=== PATIENT | female | born 1975 | race Caucasian/White ===

== ENCOUNTER 2016-07-29 20:49 | Emergency (ER) | payer MEDICAID, OTHER ==
[~2016-07-29] VITALS: Ht 165.1 cm; Wt 87.5 kg
[~2016-07-29 20:49] MED LIST: DIPH1TAB25 PO; HYDR-762 PO; IBUP-1542 PO
[2016-07-29 20:57] VITALS: Ht 165.1 cm; Wt 87.5 kg
[2016-07-29] MEDS ORDERED: ONDANSETRON 4 MG INJ IV STA (22:17)
[2016-07-29] MEDS ORDERED: SOD CHLORIDE 0.9% 1,000 ML IV STA (22:17)
[2016-07-29] MEDS ORDERED: morphine 4 MG/ML VIAL IV STA (22:17)
--- NOTE | 2016-07-29 22:36 | ERD ---
ER Documentation Chief Complaint Date/Time DATE: 07/29/16 TIME: 22:23 Chief Complaint PT with AP started today and nausea. Had gallstones recently. HPI 41-year-old female presents to emergency department for complaints of right upper quadrant abdominal pain radiating to the back started today. Patient discussed the pain as sharp pain, 6/10 scale, radiates from right upper quadrant of the right upper back area. Patient is complaining of nausea denies any vomiting. Patient denies any fever or chills. Patient had a history of gallbladder stone removal, [place] Patient patient did not take any medications for pain. Patient denies hematuria or dysuria. ROS All systems reviewed and are negative except as per history of present illness. Medications Home Meds Active Scripts Phenazopyridine Hcl* (Pyridium*) 200 Mg Tab, 200 MG PO TID Y for URINARY PAIN, # 6 TAB Prov:CRISTIAN JOSEPH [employer] 07/30/16 Ondansetron (Ondansetron Odt) 4 Mg Tab.rapdis, 4 MG PO Q8 Y for NAUSEA AND/OR VOMITING, #30 TAB Prov:CRISTIAN JOSEPH NP 07/30/16 Hydrocodone/Acetaminophen ([place] 5-325 Tablet) 1 Each Tablet, 1 TAB PO Q6H Y for SEVERE PAIN LEVEL 7-10, #20 TAB Prov:CRISTIAN JOSEPH NP 07/30/16 Ibuprofen* (Motrin*) 600 Mg Tab, 600 MG PO Q6H Y for PAIN AND OR ELEVATED TEMP, #30 TAB Prov:CRISTIAN JOSEPH NP 07/30/16 Ciprofloxacin Hcl* (Ciprofloxacin Hcl*) 500 Mg Tablet, 500 MG PO BID for 7 Days , TAB Prov:CRISTIAN JOSEPH [employer] 07/30/16 Diphenoxylate Hcl-Atropine* (Lomotil*) 1 Tab Tab, 1 TAB PO Q6H Y for DIARRHEA for 5 Days, TAB Prov:CHAPIS VERDE DO 09/17/15 Hydrocodone Bit-Acetaminophen* ([place]*) 10-325 Mg Tablet, 1 TAB PO Q4H Y for PAIN, #20 TAB Prov:CHAPIS VERDE DO 09/17/15 Ibuprofen* (Motrin*) 600 Mg Tab, 600 MG PO Q6, #15 TAB Prov:KRISTA OJEDA MEKHI 03/16/15 Allergies Allergies: Coded Allergies: No Known Allergy (Unverified , 09/17/15) PMhx/Soc Medical and Surgical Hx: pt denies Medical Hx History of Surgery: Yes (appendectomy, cholecystectomy, fibroidectomy) Anesthesia Reaction: No Hx Neurological Disorder: No Hx Respiratory Disorders: No Hx Cardiac Disorders: No Hx Psychiatric Problems: No Hx Miscellaneous Medical Probl: No Hx Alcohol Use: No Hx Substance Use: No Hx Tobacco Use: No Smoking Status: Never smoker FmHx Family History: No coronary disease, No diabetes, No other Physical Exam Vitals Vital Signs Date Time Temp Pulse Resp B/P Pulse Ox O2 Delivery O2 Flow Rate FiO2 07/29/16 20:57 98.7 79 20 139/79 100 Physical Exam GENERAL: The patient is well developed and appropriate for usual state of health, in no apparent distress. CHEST: Clear to auscultation bilaterally. There are no rales, wheezes or rhonchi. HEART: Regular rate and rhythm. No murmurs, clicks, rubs or gallops. No S3 or S4. ABDOMEN: Soft, nontender and nondistended. Good bowel sounds. No rebound or guarding. No gross peritonitis. No gross organomegaly or masses. No Avila sign or McBurney point tenderness. BACK: No midline or flank tenderness. EXTREMITIES: Equal pulses bilaterally. There is no peripheral clubbing, cyanosis or edema. No focal swelling or erythema. Full range of motion. Grossly neurovascularly intact. NEURO: Alert and oriented. Cranial nerves 2-12 intact. Motor strength in all 4 extremities with 5/5 strength. Sensation grossly intact. Normal speech and gait. SKIN: There is no apparent rash or petechia. The skin is warm and dry. HEMATOLOGIC AND LYMPHATIC: There is no evidence of excessive bruising or lymphedema. No gross cervical, axillary, or inguinal lymphadenopathy. Result Diagram: 07/29/16222907/29/162229 Results 24 hrs Laboratory Tests Test 07/29/16 22:30 07/29/16 22:35 Alanine Aminotransferase (ALT/SGPT) 41IU/L Albumin 4.2g/dl Albumin/Globulin Ratio 1.20 Alkaline Phosphatase 138IU/L Anion Gap 16 Aspartate Amino Transf (AST/SGOT) 28IU/L Basophils # 0.010^3/ul Basophils % 0.5% Blood Urea Nitrogen 14mg/dl Calcium Level 10.1mg/dl Carbon Dioxide Level 26mmol/L Chloride Level 104mmol/L Creatinine 0.85mg/dl Direct Bilirubin 0.00mg/dl Eosinophils # 0.110^3/ul Eosinophils % 1.6% Globulin 3.50g/dl Glucose Level 96mg/dl Hematocrit 38.8% Hemoglobin 12.5g/dl Indirect Bilirubin 0.2mg/dl Lipase 73U/L Lymphocytes # 2.610^3/ul Lymphocytes % 40.2% Mean Corpuscular Hemoglobin 27.4pg Mean Corpuscular Hemoglobin Concent 32.2g/dl Mean Corpuscular Volume 85.1fl Mean Platelet Volume 11.3fl Monocytes # 0.310^3/ul Monocytes % 5.2% Neutrophils # 3.410^3/ul Neutrophils % 52.3% Nucleated Red Blood Cells # 0.010^3/ul Nucleated Red Blood Cells % 0.0/100WBC Platelet Count 71674^3/UL Potassium Level 3.9mmol/L Red Blood Count 4.5610^6/ul Red Cell Distribution Width 14.4% Sodium Level 142mmol/L Total Bilirubin 0.2mg/dl Total Protein 7.7g/dl White Blood Count 6.410^3/ul Urine Bacteria MANY Urine Bilirubin NEGATIVE Urine Clarity CLOUDY Urine Color LT. YELLOW Urine Glucose NEGATIVE% Urine Hemoglobin 3+ Urine Ketones NEGATIVE Urine Leukocyte Esterase 1+ Urine Microscopic RBC >200/HPF Urine Microscopic WBC 2-5/HPF Urine Nitrite POSITIVE Urine Specific [place] 1.020 Urine Squamous Epithelial Cells FEW Urine Total Protein TRACE Urine Urobilinogen 0.2 E.U./dL Urine pH 6.0 Current Medications Medications (Trade) Dose Ordered Sig/Clarice Route PRN Reason Start Time Stop Time Status Last Admin Dose Admin Sodium Chloride (NS) 1,000 ml @ 1,000 mls/hr Q1H STAT IV 07/29/16 22:17 07/29/16 23:16 DC 07/29/16 22:39 Morphine Sulfate (morphine) 4 mg ONCE STAT IV 07/29/16 22:17 07/29/16 22:22 DC 07/29/16 22:38 Ondansetron HCl 4 mg 4 mg ONCE STAT IV 07/29/16 22:17 07/29/16 22:22 DC 07/29/16 22:38 Ceftriaxone Sodium (Rocephin) 50 ml @ 100 mls/hr ONCE ONCE IVPB 07/30/16 00:00 07/30/16 00:29 Patient was given medication for pain here in emergency department, after treatment, patient verbalized feeling much better. Patient's pain is improved.Patient was given Zofran here in the emergency department. After treatment, patient was able to tolerate po fluids here in the emergency department without any vomiting. There is no signs and symptoms of dehydration. Normal saline IV bolus was given here in emergency department for rehydration, patient tolerated IV fluids. PROCEDURE: Ultrasound of the abdomen. CLINICAL INDICATION: Right upper quadrant pain. TECHNIQUE: Sonographic images of the abdomen were performed. COMPARISON: No pertinent prior examinations were submitted for comparison. FINDINGS: Liver: The liver is diffusely increased in echogenicity and enlarged, measuring approximately 19 cm. The hepatic veins and portal veins are patent with appropriate directional flow. No intrahepatic ductal dilatation is seen. Gallbladder: Prior cholecystectomy is noted. The common duct measures 3.3 mm. Pancreas: Obscured by bowel gas. Kidneys: The right kidney measures 12.1 cm. There is normal corticomedullary differentiation. There is no evidence of renal calculus or hydronephrosis. IVC: The visualized portion of the inferior vena cava is unremarkable. Aorta: Normal in size. Free fluid: None. IMPRESSION: Hepatic steatosis and hepatomegaly. RPTAT: HIKT .Fareed Wise MD, MD Date Time Electronically viewed and signed by .Fareed Wise MD, on 07/29/2016 23:52 .T/ CC: CRISTIAN JOSEPH [employer] Procedures/MDM Medical Decision Making: Patient symptoms is likely consistent with pyelonephritis considering patient has flank pain, nitrates and leukocytes in the urine. There is low suspicion for abdominal emergencies at this time. Patients abdominal exam is normal at this time. Patients radiology exam does not show any abdominal emergencies at this time. There is low suspicion for appendicitis, cholecystitis, abdominal aortic aneurysms or peritonitis at this time. There is low suspicion for sepsis. Patient appears well and is hemodynamically stable. Disposition: Home. Condition: Stable Prescription ciprofloxacin, ibuprofen, [place], Zofran, pyridium Instructions: Patient is advised to take medications as prescribed. Patient is advised to rest, increase fluid intake and do perineal hygiene. Patient is advised that if symptoms are worse, severe abdominal pain, uncontrolled vomiting , high fever, severe flank pain, worst signs and symptoms, to return to the emergency department immediately. Otherwise, patient can follow up with primary care doctor in 5-7 days. Departure Diagnosis: Primary Impression: Pyelonephritis Condition: Stable Patient Instructions: Pyelonephritis, Female (Adult) Additional Instructions: Patient is advised to take medications as prescribed. Patient is advised to rest , increase fluid intake and do perineal hygiene. Patient is advised that if symptoms are worse, severe abdominal pain, uncontrolled vomiting, high fever, severe flank pain, worst signs and symptoms, to return to the emergency department immediately. Otherwise, patient can follow up with primary care doctor in 5-7 days. CRISTIAN JOSEPH NP Jul 29, 2016 22:34
[2016-07-29 22:47] LABS: ADD SCAN DIFF NO
[2016-07-29 22:49] LABS: BASOPHILS % 0.5 % (0.0-2.0); EOSINOPHILS # 0.1 10^3/ul (0.0-0.5); EOSINOPHILS % 1.6 % (0.0-7.0); HEMATOCRIT 38.8 % (37.0-47.0); HEMOGLOBIN 12.5 g/dl (12.0-16.0); LYMPHOCYTES # 2.6 10^3/ul (0.8-2.9); LYMPHOCYTES % 40.2 % (15.0-51.0); MEAN CORPUSCULAR HEMOGLOBIN 27.4 pg (29.0-33.0); MEAN CORPUSCULAR HGB CONC 32.2 g/dl (32.0-37.0); MEAN CORPUSCULAR VOLUME 85.1 fl (82.0-101.0); MEAN PLATELET VOLUME 11.3 fl (7.4-10.4); MONOCYTE # 0.3 10^3/ul (0.3-0.9); MONOCYTES % 5.2 % (0.0-11.0); NEUTROPHIL # 3.4 10^3/ul (1.6-7.5); NEUTROPHILS % 52.3 % (39.0-77.0); PLATELET COUNT 299 10^3/UL (140-415); RED BLOOD COUNT 4.56 10^6/ul (4.20-5.40); RED CELL DISTRIBUTION WIDTH 14.4 % (11.5-14.5); WHITE BLOOD COUNT 6.4 10^3/ul (4.8-10.8)
[2016-07-29 23:05] LABS: ALBUMIN 4.2 g/dl (3.3-4.9)
[2016-07-29 23:06] LABS: POTASSIUM 3.9 mmol/L (3.5-5.1)
[2016-07-29 23:08] LABS: ALBUMIN/GLOBULIN RATIO 1.2; BILIRUBIN,INDIRECT 0.2 mg/dl (0-1.1); BILIRUBIN,TOTAL 0.2 mg/dl (0.2-1.3); CREATININE 0.85 mg/dl (0.44-1.00); TOTAL PROTEIN 7.7 g/dl (6.1-8.1)
[2016-07-29 23:09] LABS: CALCIUM 10.1 mg/dl (8.4-10.2)
[2016-07-29 23:16] LABS: ADD UMIC YES; URINE BILIRUBIN (Dip) NEGATIVE (NEGATIVE); URINE BLOOD (Dip) 3+ (NEGATIVE); URINE COLOR LT. YELLOW (YELLOW); URINE GLUCOSE (Dip) NEGATIVE (NEGATIVE); URINE KETONES (Dip) NEGATIVE (NEGATIVE); URINE LEUKOCYTE ESTERASE (Dip) 1+ (NEGATIVE); URINE NITRITE (Dip) POSITIVE (NEGATIVE); URINE TOTAL PROTEIN (Dip) TRACE (NEGATIVE); URINE UROBILINOGEN (Dip) 0.2 E.U./dL (0.1-1.0)
[2016-07-29 23:28] LABS: BACTERIA,URINE MANY; SQUAMOUS EPITHELIAL CELL,UR FEW; URINE RBCS >200 /HPF (0)
--- NOTE | 2016-07-29 23:52 | RADRPT ---
PROCEDURE: Ultrasound of the abdomen. CLINICAL INDICATION: Right upper quadrant pain. TECHNIQUE: Sonographic images of the abdomen were performed. COMPARISON: No pertinent prior examinations were submitted for comparison. FINDINGS: Liver: The liver is diffusely increased in echogenicity and enlarged, measuring approximately 19 cm . The hepatic veins and portal veins are patent with appropriate directional flow. No intrahepatic d uctal dilatation is seen. Gallbladder: Prior cholecystectomy is noted. The common duct measures 3.3 mm. Pancreas: Obscured by bowel gas. Kidneys: The right kidney measures 12.1 cm. There is normal corticomedullary differentiation. Ther e is no evidence of renal calculus or hydronephrosis. IVC: The visualized portion of the inferior vena cava is unremarkable. Aorta: Normal in size. Free fluid: None. IMPRESSION: Hepatic steatosis and hepatomegaly. RPTAT: HIKT .Fareed Wise MD, Date Time Electronically viewed and signed by .Fareed Wise MD, on 07/29/2016 23:52 .T/
[2016-07-30] MEDS ORDERED: CEFTRIAXONE 1 GM/50 ML (PMX) 50 ML IVPB ONE
[2016-07-30] MEDS ORDERED: ONDA4TAB14 PO (00:02)
[2016-07-30] MEDS ORDERED: PHEN-538 PO (00:02)
[2016-07-30] MEDS ORDERED: IBUP-1542 PO (00:02)
[2016-07-30] MEDS ORDERED: CIPR500T4 PO (00:02)
[2016-07-30] MEDS ORDERED: HYDR-906 PO (00:02)
[2016-07-30 00:42] VITALS: BP 113/74; PULSE 53; RESP 18; TEMP 97.6
== END 2016-07-30 00:42 | disposition home or self-care (01) ==
LOC: FTE 20:49
DX: N12 Tubulo-interstitial nephritis, not specified as acute or chronic (principal); R11.0 Nausea
CPT/HCPCS: 36415; 76705; 80053; 81001; 83690; 85025; 96374; 96375; J0696; J2270; J2405; J7030; Z7502; 81003

== ENCOUNTER 2016-11-18 19:17 | Emergency (ER) | payer MEDICAID, OTHER ==
[~2016-11-18] VITALS: Ht 162.6 cm; Wt 88.1 kg
[~2016-11-18 19:17] MED LIST changes: +CIPR500T4 PO; +HYDR-906 PO; +ONDA4TAB14 PO; +PHEN-538 PO
[2016-11-18 19:47] VITALS: Ht 162.6 cm; Wt 88.1 kg
[2016-11-18 20:52] LABS: ADD SCAN DIFF NO
--- NOTE | 2016-11-18 20:53 | ERD ---
ER Documentation Chief Complaint Date/Time DATE: 11/18/16 TIME: 20:51 Chief Complaint abd pain since this am, 3 weeks preg. -n/v/d. denies vag bleed HPI Patient is a 41-year-old female who is who presents to the ED with mild pelvic pain 1 day. Patient states that her last normal menstrual period was 02/2017 she states that she is approximately 4 weeks through IVF. She is currently on estradiol and progesterone. She states that her OB doctor is a doctor in [place]. She denies fever or chills. Denies abdominal pain, nausea, vomiting or diarrhea. Denies back pain. Denies headache or dizziness. Denies leg pain or leg swelling. Denies recent travel or recent surgeries. Denies chest pain or cough or shortness of breath. ROS All systems reviewed and are negative except as per history of present illness. Medications Home Meds Active Scripts Nitrofurantoin Monohyd Macrocr* (Macrobid*) 100 Mg Capsr, 100 MG PO BID for 7 Days, CAP Prov:JAZZ MATT PA-C 11/18/16 Phenazopyridine Hcl* (Pyridium*) 200 Mg Tab, 200 MG PO TID Y for URINARY PAIN, # 6 TAB Prov:CRISTIAN JOSEPH NP 07/30/16 Ondansetron (Ondansetron Odt) 4 Mg Tab.rapdis, 4 MG PO Q8 Y for NAUSEA AND/OR VOMITING, #30 TAB Prov:CRISTIAN JOSEPH NP 07/30/16 Hydrocodone/Acetaminophen ([place] 5-325 Tablet) 1 Each Tablet, 1 TAB PO Q6H Y for SEVERE PAIN LEVEL 7-10, #20 TAB Prov:CRISTIAN JOSEPH NP 07/30/16 Ibuprofen* (Motrin*) 600 Mg Tab, 600 MG PO Q6H Y for PAIN AND OR ELEVATED TEMP, #30 TAB Prov:CRISTIAN JOSEPH NP 07/30/16 Ciprofloxacin Hcl* (Ciprofloxacin Hcl*) 500 Mg Tablet, 500 MG PO BID for 7 Days , TAB Prov:CRISTIAN JOSEPH NP 07/30/16 Diphenoxylate Hcl-Atropine* (Lomotil*) 1 Tab Tab, 1 TAB PO Q6H Y for DIARRHEA for 5 Days, TAB Prov:CHAPIS VERDE. DO 09/17/15 Hydrocodone Bit-Acetaminophen* ([place]*) 10-325 Mg Tablet, 1 TAB PO Q4H Y for PAIN, #20 TAB Prov:CHAPIS VERDE. DO 09/17/15 Ibuprofen* (Motrin*) 600 Mg Tab, 600 MG PO Q6, #15 TAB Prov:KRISTA OJEDA NP 03/16/15 Allergies Allergies: Coded Allergies: No Known Allergy (Unverified , 09/17/15) PMhx/Soc Medical and Surgical Hx: pt denies Medical Hx, pt denies Surgical Hx History of Surgery: No Anesthesia Reaction: No Hx Neurological Disorder: No Hx Respiratory Disorders: No Hx Cardiac Disorders: No Hx Psychiatric Problems: No Hx Miscellaneous Medical Probl: No Hx Alcohol Use: No Hx Substance Use: No Hx Tobacco Use: No Smoking Status: Never smoker FmHx Family History: No coronary disease, No diabetes, No other Physical Exam Vitals Vital Signs Date Time Temp Pulse Resp B/P Pulse Ox O2 Delivery O2 Flow Rate FiO2 11/18/16 19:47 98.6 82 18 113/70 99 Physical Exam GENERAL: Well-developed, well-nourished female. Appears in no acute distress. HEAD: Normocephalic, atraumatic. EYES: Pupils are equally reactive bilaterally. EOMs grossly intact. No conjunctival erythema. ENT: Moist mucous membranes. No uvula deviation. No kissing tonsils. No exudates. NECK: Supple. No lymphadenopathy or thyromegaly. No meningismus. negative kernig. negative brudinski. LUNG: Clear to auscultation bilaterally. No rhonchi, wheezing, rales or coarse breath sounds. HEART: Regular rate and rhythm. No murmurs, rubs or gallops. ABDOMEN: No scars, ecchymosis or rashes noted. Soft, nontender, and nondistended. Positive bowel sounds in all four quadrants. No rebound tenderness , no guarding. (-) McBurneys point tenderness. No CVA tenderness. BACK: No midline tenderness. Extremities: Equal pulses bilaterally. No peripheral clubbing, cyanosis or edema. No unilateral leg swelling. NEUROLOGIC: Alert and oriented. Moving all four extremities. 5/5 strength in all extremities. Normal speech. Steady gait. SKIN: Normal color. Warm and dry. No rashes or lesions. Capillary refill < 2 seconds Result Diagram: 11/18/162037 Results 24 hrs Laboratory Tests Test 11/18/16 20:38 White Blood Count 8.510^3/ul Red Blood Count 4.6310^6/ul Hemoglobin 13.5g/dl Hematocrit 39.0% Mean Corpuscular Volume 84.2fl Mean Corpuscular Hemoglobin 29.2pg Mean Corpuscular Hemoglobin Concent 34.6g/dl Red Cell Distribution Width 14.6% Platelet Count 90172^3/UL Mean Platelet Volume 10.7fl Neutrophils % 60.0% Lymphocytes % 33.6% Monocytes % 4.5% Eosinophils % 1.2% Basophils % 0.5% Nucleated Red Blood Cells % 0.0/100WBC Neutrophils # 5.110^3/ul Lymphocytes # 2.910^3/ul Monocytes # 0.410^3/ul Eosinophils # 0.110^3/ul Basophils # 0.010^3/ul Nucleated Red Blood Cells # 0.010^3/ul Urine Color YELLOW Urine Clarity CLEAR Urine pH 5.0 Urine Specific [place] 1.014 Urine Ketones NEGATIVEmg/dL Urine Nitrite NEGATIVEmg/dL Urine Bilirubin NEGATIVEmg/dL Urine Urobilinogen NEGATIVEmg/dL Urine Leukocyte Esterase 2+[place]/ul Urine Microscopic RBC 3/HPF Urine Microscopic WBC 24/HPF Urine Squamous Epithelial Cells FEW/HPF Urine Bacteria MANY/HPF Urine Mucus FEW/HPF Urine Hemoglobin 1+mg/dL Urine Glucose NEGATIVEmg/dL Urine Total Protein NEGATIVEmg/dl Beta HCG, Quantitative 7097.5mIU/ml Procedures/MDM ER COURSE: I kept the patient and/or family informed of laboratory and diagnostic imaging results throughout the emergency room course. EKG, MONITORS, & DIAGNOSTIC IMAGING: [place] [id number] Radiology Main Line: [phone] DIAGNOSTIC IMAGING REPORT Patient: SIMBA ESQUIVEL : 1975 Age: 41 Sex: F MR #: [id number] DOS: 11/18/162022 Ordering MD: JAZZ MATT PA-C Location: [facility] Room/Bed: PROCEDURE: OB Ultrasound. CLINICAL INDICATION: Positive test. Pelvic pain. TECHNIQUE: Ultrasound of the pelvis was performed with transabdominal and transvaginal sonography in the axial and sagittal planes. COMPARISON: No prior study is available for comparison. FINDINGS: There is a single intrauterine gestational sac. pole is not visualized. Yolk sac is present. Mean sac diameter is 0.77 cm. Menstrual age by ultrasound dates is 5 weeks 3 days. This indicates an expected date of delivery of 07/18/2017. The right ovary appears normal measuring 3.2 x 2.3 x 2.0 cm. The left ovary appears normal measuring 2.9 x 1.5 x 1.8 cm. Color Doppler and pulsed Doppler sonography demonstrate normal flow to the ovaries. There is no pelvic mass. There is a moderate amount of free fluid in the cul-de -sac. IMPRESSION: 1. Single intrauterine gestational sac measuring 0.77 cm. pole is not visualized but yolk sac is present. Follow-up ultrasound in 11 days is advised. 2. Moderate free fluid in the cul-de-sac, nonspecific. Follow-up advised. RPTAT: QQ .Tyron Saucedo MD, Date Time Electronically viewed and signed by .Tyron Saucedo MD, on 11/18/2016 21:53 .R/ CC: JAZZ MATT PA-C LAB INTERPRETATION: CBC showed no evidence of systemic infection or severe anemia. UA showed 2+ leukocytes with no nitrites or hematuria C.5 RH: o+ MEDICAL DECISION MAKING: This is a 41-year-old female who presents with who presents to the ED with bilateral pelvic pain 1 day. Vital signs were reviewed. Patient is afebrile. Patient is not hypoxic. Patient is nontoxic or ill-appearing. Ultrasound is read by radiologist shows a single intrauterine gestational sac with a yolk sac but no pole. Beta hCG is within normal limits patient does not require RhoGam at this time. Advised patient to follow-up with her OB and repeat ultrasound and beta hCGs in 2 days. Low suspicion for ovarian torsion, PID, tuboovarian abscess, ectopic , bowel obstruction, pyelonephritis, UTI, appendicitis, cervicitis, septic , molar , HELLP syndrome, preeclampsia, eclampsia, placenta previa, placenta abruptia. Patient also has a UTI. Her urine showed 2+ leukocytes. DISCHARGE: At this time, patient is stable for discharge and outpatient management with no new complaints during the ER course. Patient was sent home with Macrobid and a copy of all imaging and laboratory studies.. Patient will be discharged home with instructions to recheck for new or worsening symptoms such as fever, nausea , weakness, LOC and to follow up with primary care in the next 1-2 days. Patient was advised to return to the ER for any new or worsening symptoms. Plan was discussed and patient and/or family understands and agrees. Home instructions were given. Departure Diagnosis: Primary Impression: UTI (urinary tract infection) Urinary tract infection type: acute cystitis Hematuria presence: without hematuria Qualified Code: N30.00 - Acute cystitis without hematuria Condition: Stable JAZZ MATT PA-C Nov 18, 2016 20:53
[2016-11-18 20:54] LABS: BASOPHILS % 0.5 % (0.0-2.0); EOSINOPHILS # 0.1 10^3/ul (0.0-0.5); EOSINOPHILS % 1.2 % (0.0-7.0); HEMOGLOBIN 13.5 g/dl (12.0-16.0); LYMPHOCYTES # 2.9 10^3/ul (0.8-2.9); LYMPHOCYTES % 33.6 % (15.0-51.0); MEAN CORPUSCULAR HEMOGLOBIN 29.2 pg (29.0-33.0); MEAN CORPUSCULAR HGB CONC 34.6 g/dl (32.0-37.0); MEAN CORPUSCULAR VOLUME 84.2 fl (82.0-101.0); MEAN PLATELET VOLUME 10.7 fl (7.4-10.4); MONOCYTE # 0.4 10^3/ul (0.3-0.9); MONOCYTES % 4.5 % (0.0-11.0); NEUTROPHIL # 5.1 10^3/ul (1.6-7.5); PLATELET COUNT 321 10^3/UL (140-415); RED BLOOD COUNT 4.63 10^6/ul (4.20-5.40); RED CELL DISTRIBUTION WIDTH 14.6 % (11.5-14.5); WHITE BLOOD COUNT 8.5 10^3/ul (4.8-10.8)
[2016-11-18 21:02] LABS: ADD UMIC YES; UR ASCORBIC ACID NEGATIVE (NEGATIVE); UR BACTERIA MANY /HPF (NONE SEEN); UR BILIRUBIN (Dip) NEGATIVE (NEGATIVE); UR BLOOD (Dip) 1+ mg/dL (NEGATIVE); UR CLARITY CLEAR (CLEAR); UR COLOR YELLOW (YELLOW); UR GLUCOSE (Dip) NEGATIVE (NEGATIVE); UR KETONES (Dip) NEGATIVE (NEGATIVE); UR LEUKOCYTE ESTERASE (Dip) 2+ Leu/ul (NEGATIVE); UR MUCUS FEW /HPF (NONE SEEN); UR NITRITE (Dip) NEGATIVE (NEGATIVE); UR RBC 3 /HPF (0-5); UR SPECIFIC GRAVITY (Dip) 1.014 (1.003-1.030); UR SQUAMOUS EPITHELIAL CELL FEW /HPF (FEW); UR TOTAL PROTEIN (Dip) NEGATIVE (NEGATIVE); UR UROBILINOGEN (Dip) NEGATIVE (NEGATIVE)
--- NOTE | 2016-11-18 21:54 | RADRPT ---
PROCEDURE: OB Ultrasound. CLINICAL INDICATION: Positive test. Pelvic pain. TECHNIQUE: Ultrasound of the pelvis was performed with transabdominal and transvaginal sonography in the axial and sagittal planes. COMPARISON: No prior study is available for comparison. FINDINGS: There is a single intrauterine gestational sac. pole is not visualized. Yolk sac is present. Mean sac diameter is 0.77 cm. Menstrual age by ultrasound dates is 5 weeks 3 days. This indicates an expected date of delivery of 07/18/2017. The right ovary appears normal measuring 3.2 x 2.3 x 2.0 cm. The left ovary appears normal measuring 2.9 x 1.5 x 1.8 cm. Color Doppler and pulsed Doppler sonography demonstrate normal flow to the ovaries. There is no pelvic mass. There is a moderate amount of free fluid in the cul-de-sac. IMPRESSION: 1. Single intrauterine gestational sac measuring 0.77 cm. pole is not visualized but yolk sa c is present. Follow-up ultrasound in 11 days is advised. 2. Moderate free fluid in the cul-de-sac, nonspecific. Follow-up advised. RPTAT: QQ .Tyron Saucedo MD, Date Time Electronically viewed and signed by .Tyron Saucedo MD, on 11/18/2016 21:53 .R/
[2016-11-18] MEDS ORDERED: NITR-58 PO (22:05)
== END 2016-11-18 22:14 | disposition home or self-care (01) ==
LOC: FTE 19:17
DX: O23.11 Infections of bladder in pregnancy, first trimester (principal); R10.2 Pelvic and perineal pain; Z3A.01 Less than 8 weeks gestation of pregnancy
CPT/HCPCS: 36415; 76801; 76817; 81001; 84702; 85025; 86900; 86901

== ENCOUNTER 2016-11-23 18:18 | Emergency (ER) | payer MEDICAID ==
[~2016-11-23] VITALS: Wt 88.5 kg
[~2016-11-23 18:18] MED LIST changes: +NITR-58 PO
--- NOTE | 2016-11-23 18:46 | ERD ---
ER Documentation Chief Complaint Date/Time DATE: 11/23/16 TIME: 18:45 Chief Complaint 4 WEEKS PREG MOD AMOUNT OF BRIGHT RED VAG BLEEDING W/ CLOTS STARTED 1HR AGO HPI This is a 41-year-old female presents to the ER with vaginal bleeding that started about an hour ago. Patient states that vaginal bleeding has been severe since this started. She denies any pelvic pain. She denies any urinary frequency or dysuria. Patient denies any vaginal discharge. A0. ROS 12 point review of systems was done, all negative except per HPI. Medications Home Meds Active Scripts Nitrofurantoin Monohyd Macrocr* (Macrobid*) 100 Mg Capsr, 100 MG PO BID for 7 Days, CAP Prov:JAZZ MATT PA-C 11/18/16 Phenazopyridine Hcl* (Pyridium*) 200 Mg Tab, 200 MG PO TID Y for URINARY PAIN, # 6 TAB Prov:CRISTIAN JOSEPH WOOL HANKER 07/30/16 Ondansetron (Ondansetron Odt) 4 Mg Tab.rapdis, 4 MG PO Q8 Y for NAUSEA AND/OR VOMITING, #30 TAB Prov:CRISTIAN JOSEPH WOOL HANKER 07/30/16 Hydrocodone/Acetaminophen ([place] 5-325 Tablet) 1 Each Tablet, 1 TAB PO Q6H Y for SEVERE PAIN LEVEL 7-10, #20 TAB Prov:CRISTIAN JOSEPH WOOL HANKER 07/30/16 Ibuprofen* (Motrin*) 600 Mg Tab, 600 MG PO Q6H Y for PAIN AND OR ELEVATED TEMP, #30 TAB Prov:CRISTIAN JOSEPH WOOL HANKER 07/30/16 Ciprofloxacin Hcl* (Ciprofloxacin Hcl*) 500 Mg Tablet, 500 MG PO BID for 7 Days , TAB Prov:CRSITIAN JOSEPH WOOL HANKER 07/30/16 Diphenoxylate Hcl-Atropine* (Lomotil*) 1 Tab Tab, 1 TAB PO Q6H Y for DIARRHEA for 5 Days, TAB Prov:ERNESTINE VERDESTELVERS A. DO 09/17/15 Hydrocodone Bit-Acetaminophen* ([place]*) 10-325 Mg Tablet, 1 TAB PO Q4H Y for PAIN, #20 TAB Prov:SUNDAYOSAPOSTOLOS A. DO 09/17/15 Ibuprofen* (Motrin*) 600 Mg Tab, 600 MG PO Q6, #15 TAB Prov:KRISTA OJEDALuis GAMING 03/16/15 Allergies Allergies: Coded Allergies: No Known Allergy (Unverified , 09/17/15) PMhx/Soc Medical and Surgical Hx: pt denies Medical Hx, pt denies Surgical Hx History of Surgery: No Anesthesia Reaction: No Hx Neurological Disorder: No Hx Respiratory Disorders: No Hx Cardiac Disorders: No Hx Psychiatric Problems: No Hx Miscellaneous Medical Probl: No Hx Alcohol Use: No Hx Substance Use: No Hx Tobacco Use: No Smoking Status: Never smoker Physical Exam Vitals Vital Signs Date Time Temp Pulse Resp B/P Pulse Ox O2 Delivery O2 Flow Rate FiO2 11/23/16 18:23 99.2 118 18 164/84 98 Physical Exam GENERAL: The patient is well developed and appropriate for usual state of health , in no apparent distress. HEENT: Atraumatic. CHEST: Clear to auscultation bilaterally. There are no rales, wheezes or rhonchi. HEART: Regular rate and rhythm. No murmurs, clicks, rubs or gallops. ABDOMEN: Soft, nontender and nondistended. Good bowel sounds. No rebound or guarding. No gross peritonitis. No gross organomegaly or masses. No Avila sign or McBurney point tenderness. BACK: No midline or flank tenderness. NEURO: Alert and oriented. SKIN:The skin is warm and dry. Result Diagram: 11/23/16 8647 Results 24 hrs Laboratory Tests Test 11/23/16 18:55 11/23/16 19:00 White Blood Count 7.510^3/ul Red Blood Count 4.6510^6/ul Hemoglobin 13.4g/dl Hematocrit 39.8% Mean Corpuscular Volume 85.6fl Mean Corpuscular Hemoglobin 28.8pg Mean Corpuscular Hemoglobin Concent 33.7g/dl Red Cell Distribution Width 14.6% Platelet Count 40531^3/UL Mean Platelet Volume 10.8fl Neutrophils % 63.2% Lymphocytes % 30.9% Monocytes % 4.4% Eosinophils % 0.7% Basophils % 0.4% Nucleated Red Blood Cells % 0.0/100WBC Neutrophils # 4.810^3/ul Lymphocytes # 2.310^3/ul Monocytes # 0.310^3/ul Eosinophils # 0.110^3/ul Basophils # 0.010^3/ul Nucleated Red Blood Cells # 0.010^3/ul Beta HCG, Quantitative 31832.0mIU/ml Urine Color GOOD Urine Clarity CLOUDY Urine pH 6.0 Urine Specific [place] 1.018 Urine Ketones NEGATIVEmg/dL Urine Nitrite NEGATIVEmg/dL Urine Bilirubin NEGATIVEmg/dL Urine Urobilinogen NEGATIVEmg/dL Urine Leukocyte Esterase TRACELeu/ul Urine Microscopic RBC > 182/HPF Urine Microscopic WBC 164/HPF Urine Squamous Epithelial Cells FEW/HPF Urine Mucus FEW/HPF Urine Hemoglobin 3+mg/dL Urine Glucose NEGATIVEmg/dL Urine Total Protein 2+mg/dl Procedures/MDM Differential diagnosis: Threatened , missed , incomplete , ectopic , molar , UTI, pyelonephritis. This is a 41 -year-old female that presents to the ER with vaginal bleeding. At this time her is intrauterine and her quantitative hCG is appropriate. Patient' s blood pressure was elevated to 164/84 however patient is on and the second third trimester of suspicion for preeclampsia is low. She was told to return to ER in 48 hours for recheck as this is still considered a threatened . My medical decision making was shared with the patient she understands and agrees with plan. Departure Diagnosis: Primary Impression: Threatened Condition: JONATAN Peace Nov 23, 2016 18:46
[2016-11-23 19:10] LABS: ADD SCAN DIFF NO
[2016-11-23 19:14] LABS: BASOPHILS % 0.4 % (0.0-2.0); EOSINOPHILS # 0.1 10^3/ul (0.0-0.5); EOSINOPHILS % 0.7 % (0.0-7.0); HEMATOCRIT 39.8 % (37.0-47.0); HEMOGLOBIN 13.4 g/dl (12.0-16.0); LYMPHOCYTES # 2.3 10^3/ul (0.8-2.9); LYMPHOCYTES % 30.9 % (15.0-51.0); MEAN CORPUSCULAR HEMOGLOBIN 28.8 pg (29.0-33.0); MEAN CORPUSCULAR HGB CONC 33.7 g/dl (32.0-37.0); MEAN CORPUSCULAR VOLUME 85.6 fl (82.0-101.0); MEAN PLATELET VOLUME 10.8 fl (7.4-10.4); MONOCYTE # 0.3 10^3/ul (0.3-0.9); MONOCYTES % 4.4 % (0.0-11.0); NEUTROPHIL # 4.8 10^3/ul (1.6-7.5); NEUTROPHILS % 63.2 % (39.0-77.0); PLATELET COUNT 304 10^3/UL (140-415); RED BLOOD COUNT 4.65 10^6/ul (4.20-5.40); RED CELL DISTRIBUTION WIDTH 14.6 % (11.5-14.5); WHITE BLOOD COUNT 7.5 10^3/ul (4.8-10.8)
[2016-11-23 19:27] LABS: ADD UMIC YES; UR ASCORBIC ACID 40 mg/dL (NEGATIVE); UR BILIRUBIN (Dip) NEGATIVE (NEGATIVE); UR BLOOD (Dip) 3+ mg/dL (NEGATIVE); UR CLARITY CLOUDY (CLEAR); UR COLOR AMBER (YELLOW); UR GLUCOSE (Dip) NEGATIVE (NEGATIVE); UR KETONES (Dip) NEGATIVE (NEGATIVE); UR LEUKOCYTE ESTERASE (Dip) TRACE Leu/ul (NEGATIVE); UR MUCUS FEW /HPF (NONE SEEN); UR NITRITE (Dip) NEGATIVE (NEGATIVE); UR RBC > 182 /HPF (0-5); UR SPECIFIC GRAVITY (Dip) 1.018 (1.003-1.030); UR SQUAMOUS EPITHELIAL CELL FEW /HPF (FEW); UR TOTAL PROTEIN (Dip) 2+ mg/dl (NEGATIVE); UR UROBILINOGEN (Dip) NEGATIVE (NEGATIVE)
--- NOTE | 2016-11-23 19:36 | RADRPT ---
PROCEDURE: OB Ultrasound. CLINICAL INDICATION: Positive test. Abnormal vaginal bleeding. TECHNIQUE: Ultrasound of the pelvis was performed with transabdominal and transvaginal sonography in the axial and sagittal planes. COMPARISON: 11/18/2016. FINDINGS: There is a single intrauterine gestational sac. pole and yolk sac are present. There is heart motion. heart rate is 93 beats per minute. [place]-rump length is 0.32 cm. Mean sac diameter is 1.53 cm. Menstrual age by ultrasound dates is 6 weeks 1 day. This indicates an expected date of delivery of 07/18/2017. The right ovary appears normal measuring 2.3 x 1.7 x 2.5 cm. The left ovary appears normal measuring 2.5 x 1.5 x 1.4 cm. Color Doppler and pulsed Doppler sonography demonstrate normal flow to the ovaries. There is no other pelvic mass or free fluid. IMPRESSION: 1. Single live intrauterine gestation of 6 weeks 1 day menstrual age by ultrasound dates. 2. Expected date of delivery is 07/18/2017. RPTAT: QQ .Tyron Saucedo MD, Date Time Electronically viewed and signed by .Tyron Saucedo MD, on 11/23/2016 19:35 .R/
== END 2016-11-23 21:04 | disposition home or self-care (01) ==
LOC: FTE 18:18
DX: O20.0 Threatened abortion (principal); Z3A.01 Less than 8 weeks gestation of pregnancy
CPT/HCPCS: 36415; 76801; 76817; 81001; 84702; 85025; 86900; 86901; Z7502

== ENCOUNTER 2016-11-25 05:08 | Emergency (ER) | payer MEDICAID ==
[~2016-11-25] VITALS: Ht 160 cm; Wt 88.5 kg
[2016-11-25 05:13] VITALS: Ht 160 cm; Wt 88.5 kg
--- NOTE | 2016-11-25 06:55 | ERD ---
ER Documentation Chief Complaint Date/Time DATE: 11/25/16 TIME: 06:52 Chief Complaint Pt reports she is here for a beta quant recheck HPI Is a 41-year-old female who presents to the emergency department today for recheck of her blood work. Patient states she was here 2 days ago for bleeding during . States she has stopped bleeding. States she is here because she was told to come back. Denies any fevers or chills, abdominal pain, dysuria ROS All systems reviewed and are negative except as per history of present illness. Medications Home Meds Active Scripts Nitrofurantoin Monohyd Macrocr* (Macrobid*) 100 Mg Capsr, 100 MG PO BID for 7 Days, CAP Prov:JAZZ MATT PA-C 11/18/16 Phenazopyridine Hcl* (Pyridium*) 200 Mg Tab, 200 MG PO TID Y for URINARY PAIN, # 6 TAB Prov:CRISTIAN JOSEPH DENTAL SCHEDULING COORDINATOR 07/30/16 Ondansetron (Ondansetron Odt) 4 Mg Tab.rapdis, 4 MG PO Q8 Y for NAUSEA AND/OR VOMITING, #30 TAB Prov:CRISTIAN JOSEPH DENTAL SCHEDULING COORDINATOR 07/30/16 Hydrocodone/Acetaminophen ([place] 5-325 Tablet) 1 Each Tablet, 1 TAB PO Q6H Y for SEVERE PAIN LEVEL 7-10, #20 TAB Prov:CRISTIAN JOSEPH DENTAL SCHEDULING COORDINATOR 07/30/16 Ibuprofen* (Motrin*) 600 Mg Tab, 600 MG PO Q6H Y for PAIN AND OR ELEVATED TEMP, #30 TAB Prov:CRISTIAN JOSEPH DENTAL SCHEDULING COORDINATOR 07/30/16 Ciprofloxacin Hcl* (Ciprofloxacin Hcl*) 500 Mg Tablet, 500 MG PO BID for 7 Days , TAB Prov:CRISTIAN JOSEPH DENTAL SCHEDULING COORDINATOR 07/30/16 Diphenoxylate Hcl-Atropine* (Lomotil*) 1 Tab Tab, 1 TAB PO Q6H Y for DIARRHEA for 5 Days, TAB Prov:ERNESTINE VERDESTELVERS A. DO 09/17/15 Hydrocodone Bit-Acetaminophen* ([place]*) 10-325 Mg Tablet, 1 TAB PO Q4H Y for PAIN, #20 TAB Prov:SUNDAYOSAPOSTOLOS A. DO 09/17/15 Ibuprofen* (Motrin*) 600 Mg Tab, 600 MG PO Q6, #15 TAB Prov:KRISTA OJEDA Katelin GAMING 03/16/15 Allergies Allergies: Coded Allergies: No Known Allergy (Unverified , 09/17/15) PMhx/Soc History of Surgery: No Anesthesia Reaction: No Hx Neurological Disorder: No Hx Respiratory Disorders: No Hx Cardiac Disorders: No Hx Psychiatric Problems: No Hx Miscellaneous Medical Probl: No Hx Alcohol Use: No Hx Substance Use: No Hx Tobacco Use: No Smoking Status: Never smoker Physical Exam Vitals Vital Signs Date Time Temp Pulse Resp B/P Pulse Ox O2 Delivery O2 Flow Rate FiO2 11/25/16 05:13 98.3 82 20 122/72 99 Physical Exam Const: No acute distress Head: Atraumatic Eyes: Normal Conjunctiva ENT: Normal External Ears, Nose and Mouth. Neck: Full range of motion..~ No meningismus. Resp: Clear to auscultation bilaterally Cardio: Regular rate and rhythm, no murmurs Abd: Soft, non tender, non distended. Normal bowel sounds Skin: No petechiae or rashes Back: No midline or flank tenderness Ext: No cyanosis, or edema Neur: Awake and alert Psych: Normal Mood and Affect Results 24 hrs Laboratory Tests Test 11/25/16 06:10 Beta HCG, Quantitative 91409.0mIU/ml Procedures/MDM This is a who presents to the emergency department today for recheck of her blood work. Patient had been seen here 2 days ago for vaginal bleeding in early . Patient indicated she has stopped bleeding Patient was seen here in the emergency department 2 days ago and had an IUP of approximately 6 weeks and 1 day. Her hemoglobin at that time was 13.4. Patient indicated she stopped bleeding and I did not feel it was necessary to repeat that today. Patient's beta quant was 22 912 Today patient's beta quant was [address]. Patient's beta quant is increasing appropriately. She had an IUP and she currently has no vaginal bleeding and I do not feel the patient requires further workup at this time. She may follow- up with her SANDBLAST CARVER Patient had vaginal bleeding in early 2 days ago. I have explained her this may be early normal versus early failed however given that her beta quant is increasing and she has an IUP of low suspicion for this. Patient is afebrile and otherwise well-appearing. I have low suspicion for ectopic , tubo ovarian abscess, ovarian torsion. I have explained the results to the patient. At this time the patient is stable for discharge and outpatient management. Patient should follow up with their PCP/manager of digital in the next 1-2 days. They may return to the emergency department sooner for any persistent or worsening of symptoms. Patient understood and agreed with the plan. Departure Diagnosis: Primary Impression: Encounter for laboratory test Additional Impression: Vaginal bleeding in patient at less than 20 weeks gestation Condition: NKECHI Levi PA-C Nov 25, 2016 06:55
== END 2016-11-25 07:52 | disposition home or self-care (01) ==
LOC: FTE 05:08
DX: O20.9 Hemorrhage in early pregnancy, unspecified (principal); Z32.01 Encounter for pregnancy test, result positive; Z3A.01 Less than 8 weeks gestation of pregnancy
CPT/HCPCS: 84702; 99283

== ENCOUNTER 2017-01-06 23:46 | Emergency (ER) | payer MEDICAID ==
[~2017-01-06] VITALS: Ht 157.5 cm; Wt 89.0 kg
[2017-01-07 00:11] VITALS: Ht 157.5 cm; Wt 89.0 kg
[2017-01-07] MEDS ORDERED: SOD CHLORIDE 0.9% 1,000 ML IV ONE (01:00)
--- NOTE | 2017-01-07 01:05 | ERD ---
ER Documentation Chief Complaint Date/Time DATE: 01/07/17 TIME: 01:04 Chief Complaint LOWER PELVIC PAIN, PAINFUL UPON URINATION, 3 MONTHS , ON ANTIBX HPI 41-year-old female presents to emergency department for complaints of pelvic pain, suprapubic,dysuria started 8 days ago. Patient was diagnosed with urinary tract infection by her doctor, was started on Macrobid,states that it has not been helping.patient describes the pain as cramping pain, and dysuria burning pain 4/10 scale, worse upon urination. Patient denies any vaginal bleeding. Patient's approximately 12 weeks . 4 para 3 abortions 0.Patient denies any fever or chills. Patient denies any nausea or vomiting. ROS All systems reviewed and are negative except as per history of present illness. Medications Home Meds Active Scripts Nitrofurantoin Monohyd Macrocr* (Macrobid*) 100 Mg Capsr, 100 MG PO BID for 7 Days, CAP Prov:JAZZ MATT PA-C 11/18/16 Phenazopyridine Hcl* (Pyridium*) 200 Mg Tab, 200 MG PO TID Y for URINARY PAIN, # 6 TAB Prov:CRISTIAN JOSEPH NP 07/30/16 Ondansetron (Ondansetron Odt) 4 Mg Tab.rapdis, 4 MG PO Q8 Y for NAUSEA AND/OR VOMITING, #30 TAB Prov:CRISTIAN JOSEPH NP 07/30/16 Hydrocodone/Acetaminophen ([place] 5-325 Tablet) 1 Each Tablet, 1 TAB PO Q6H Y for SEVERE PAIN LEVEL 7-10, #20 TAB Prov:CRISTIAN JOSEPH NP 07/30/16 Ibuprofen* (Motrin*) 600 Mg Tab, 600 MG PO Q6H Y for PAIN AND OR ELEVATED TEMP, #30 TAB Prov:CRISTIAN JOSEPH NP 07/30/16 Ciprofloxacin Hcl* (Ciprofloxacin Hcl*) 500 Mg Tablet, 500 MG PO BID for 7 Days , TAB Prov:CRISTIAN JOSEPH NP 07/30/16 Diphenoxylate Hcl-Atropine* (Lomotil*) 1 Tab Tab, 1 TAB PO Q6H Y for DIARRHEA for 5 Days, TAB Prov:CHAPIS VERDE DO 09/17/15 Hydrocodone Bit-Acetaminophen* ([place]*) 10-325 Mg Tablet, 1 TAB PO Q4H Y for PAIN, #20 TAB Prov:CHAPIS VERDE DO 09/17/15 Ibuprofen* (Motrin*) 600 Mg Tab, 600 MG PO Q6, #15 TAB Prov:KRISTA OJEDA LINEN SUPPLY LOAD BUILDER 03/16/15 Allergies Allergies: Coded Allergies: No Known Allergy (Unverified , 09/17/15) PMhx/Soc Medical and Surgical Hx: pt denies Medical Hx, pt denies Surgical Hx History of Surgery: No Anesthesia Reaction: No Hx Neurological Disorder: No Hx Respiratory Disorders: No Hx Cardiac Disorders: No Hx Psychiatric Problems: No Hx Miscellaneous Medical Probl: No Hx Alcohol Use: No Hx Substance Use: No Hx Tobacco Use: No Smoking Status: Never smoker FmHx Family History: No coronary disease, No diabetes, No other Physical Exam Vitals Vital Signs Date Time Temp Pulse Resp B/P Pulse Ox O2 Delivery O2 Flow Rate FiO2 01/07/17 00:11 98.6 83 17 128/84 99 Physical Exam GENERAL: The patient is well developed and appropriate for usual state of health, in no apparent distress. CHEST: Clear to auscultation bilaterally. There are no rales, wheezes or rhonchi. HEART: Regular rate and rhythm. No murmurs, clicks, rubs or gallops. No S3 or S4. ABDOMEN: Soft, nontender and nondistended. Good bowel sounds. No rebound or guarding. No gross peritonitis. No gross organomegaly or masses. No Avila sign or McBurney point tenderness. BACK: No midline or flank tenderness. EXTREMITIES: Equal pulses bilaterally. There is no peripheral clubbing, cyanosis or edema. No focal swelling or erythema. Full range of motion. Grossly neurovascularly intact. NEURO: Alert and oriented. Cranial nerves 2-12 intact. Motor strength in all 4 extremities with 5/5 strength. Sensation grossly intact. Normal speech and gait. SKIN: There is no apparent rash or petechia. The skin is warm and dry. HEMATOLOGIC AND LYMPHATIC: There is no evidence of excessive bruising or lymphedema. No gross cervical, axillary, or inguinal lymphadenopathy. Result Diagram: 01/07/17 0100 Results 24 hrs Laboratory Tests Test 01/07/17 01:00 8/29/17 01:12 White Blood Count 8.410^3/ul Red Blood Count 4.5410^6/ul Hemoglobin 12.7g/dl Hematocrit 37.2% Mean Corpuscular Volume 81.9fl Mean Corpuscular Hemoglobin 28.0pg Mean Corpuscular Hemoglobin Concent 34.1g/dl Red Cell Distribution Width 14.0% Platelet Count 15084^3/UL Mean Platelet Volume 11.0fl Neutrophils % 61.1% Lymphocytes % 31.5% Monocytes % 5.5% Eosinophils % 1.0% Basophils % 0.4% Nucleated Red Blood Cells % 0.0/100WBC Neutrophils # (Manual) 5.110^3/ul Lymphocytes # 2.610^3/ul Monocytes # 0.510^3/ul Eosinophils # 0.110^3/ul Basophils # 0.010^3/ul Nucleated Red Blood Cells # 0.010^3/ul Beta HCG, Quantitative 44077.0mIU/ml Urine Color YELLOW Urine Clarity CLEAR Urine pH 5.0 Urine Specific [place] 1.011 Urine Ketones 1+mg/dL Urine Nitrite NEGATIVEmg/dL Urine Bilirubin NEGATIVEmg/dL Urine Urobilinogen NEGATIVEmg/dL Urine Leukocyte Esterase TRACELeu/ul Urine Microscopic RBC 0/HPF Urine Microscopic WBC 4/HPF Urine Squamous Epithelial Cells FEW/HPF Urine Calcium Oxalate Crystals MANY/HPF Urine Bacteria FEW/HPF Urine Hemoglobin NEGATIVEmg/dL Urine Glucose NEGATIVEmg/dL Urine Total Protein NEGATIVEmg/dl Current Medications Medications (Trade) Dose Ordered Sig/Clarice Route PRN Reason Start Time Stop Time Status Last Admin Dose Admin Sodium Chloride 1,000 ml @ 1,000 mls/hr Q1H ONCE IV 01/07/17 01:00 01/07/17 01:59 DC 01/07/17 01:11 Ceftriaxone Sodium (Rocephin) 50 ml @ 100 mls/hr ONCE ONCE IVPB 01/07/17 02:30 01/07/17 02:59 UNV Normal saline IV bolus was given here in emergency department for rehydration, patient tolerated IV fluids. PROCEDURE: ULTRASOUND OBSTETRICAL CLINICAL INDICATION: 41-year-old female with pelvic pain. TECHNIQUE: Multiple sonographic images of the pelvis were obtained. The images were reviewed on a PACS workstation. COMPARISON: Ultrasound pelvis November 23, 2016. FINDINGS: There is a single intrauterine gestation. The mean sac diameter is 5.46 cm. There is a pole present with a crown-rump length of 6.67 cm. This yields an estimated gestational age of 12 weeks and 4 days. The estimated date of delivery is July 18, 2017. Cardiac activity is present at 152 beats per minute. There is no evidence for free fluid. The ovaries are not visualized bilaterally. No adnexal masses are noted. IMPRESSION: 1. Single viable intrauterine gestation of approximately 12 weeks 4 days. The estimated date of delivery is July 18, 2017. 2. The ovaries were not visualized bilaterally. .Mg Benson MD, MD Date Time Electronically viewed and signed by .Mg Benson MD, on 01/07/2017 02:28 .M/ Procedures/MDM Medical Decision Making: patient's symptoms of pelvic pain most likely is consistent with urinary tract infection, there is some is trace of sites in the urine consistent with this. No symptoms of pyelonephritis. Patient's pelvic pain can be from also been growing . Patient is a viable at 12 weeks without any subchorionic hemorrhage.There is low suspicion for abdominal emergencies at this time. Patients abdominal exam is normal at this time. Patients radiology exam does not show any abdominal emergencies at this time. There is low suspicion for appendicitis, cholecystitis, abdominal aortic aneurysms or peritonitis at this time. There is low suspicion for sepsis. Patient appears well and is hemodynamically stable. Disposition: Home. Condition: Stable Prescription tylenol,Keflex Instructions: Patient is advised to take medications as prescribed. Patient is advised to rest, increase fluid intake and do brat diet for next 1-2 days and progress as tolerated. Patient is advised that if symptoms are worse, severe abdominal pain, uncontrolled vomiting, high fever, severe flank pain, worst signs and symptoms, to return to the emergency department immediately. Otherwise, patient can follow up with primary care doctor in 5-7 days. Departure Diagnosis: Primary Impression: Pelvic pain Additional Impressions: UTI (urinary tract infection) Urinary tract infection type: acute cystitis Hematuria presence: without hematuria Qualified Code: N30.00 - Acute cystitis without hematuria Intrauterine Condition: Stable Patient Instructions: Pelvic Pain In : Unclear (2-3 Trimester), Understanding Urinary Tract Infections (UTIs) Additional Instructions: Patient is advised to take medications as prescribed. Patient is advised to rest , increase fluid intake and do brat diet for next 1-2 days and progress as tolerated. Patient is advised that if symptoms are worse, severe abdominal pain , uncontrolled vomiting, high fever, severe flank pain, worst signs and symptoms , to return to the emergency department immediately. Otherwise, patient can follow up with primary care doctor in 5-7 days. CRISTIAN JOSEPH NP Jan 07, 2017 01:05
[2017-01-07 01:25] LABS: BASOPHILS % 0.4 % (0.0-2.0); EOSINOPHILS # 0.1 10^3/ul (0.0-0.5); HEMATOCRIT 37.2 % (37.0-47.0); HEMOGLOBIN 12.7 g/dl (12.0-16.0); LYMPHOCYTES # 2.6 10^3/ul (0.8-2.9); LYMPHOCYTES % 31.5 % (15.0-51.0); MEAN CORPUSCULAR HGB CONC 34.1 g/dl (32.0-37.0); MEAN CORPUSCULAR VOLUME 81.9 fl (82.0-101.0); MONOCYTE # 0.5 10^3/ul (0.3-0.9); MONOCYTES % 5.5 % (0.0-11.0); NEUTROPHILS % 61.1 % (39.0-77.0); PLATELET COUNT 274 10^3/UL (140-415); RED BLOOD COUNT 4.54 10^6/ul (4.20-5.40); WHITE BLOOD COUNT 8.4 10^3/ul (4.8-10.8)
[2017-01-07 01:37] LABS: ADD UMIC YES; UR ASCORBIC ACID NEGATIVE (NEGATIVE); UR BACTERIA FEW /HPF (NONE SEEN); UR BILIRUBIN (Dip) NEGATIVE (NEGATIVE); UR BLOOD (Dip) NEGATIVE (NEGATIVE); UR CLARITY CLEAR (CLEAR); UR COLOR YELLOW (YELLOW); UR GLUCOSE (Dip) NEGATIVE (NEGATIVE); UR KETONES (Dip) 1+ mg/dL (NEGATIVE); UR LEUKOCYTE ESTERASE (Dip) TRACE Leu/ul (NEGATIVE); UR NITRITE (Dip) NEGATIVE (NEGATIVE); UR RBC 0 /HPF (0-5); UR SPECIFIC GRAVITY (Dip) 1.011 (1.003-1.030); UR SQUAMOUS EPITHELIAL CELL FEW /HPF (FEW); UR TOTAL PROTEIN (Dip) NEGATIVE (NEGATIVE); UR UROBILINOGEN (Dip) NEGATIVE (NEGATIVE)
--- NOTE | 2017-01-07 02:28 | RADRPT ---
PROCEDURE: ULTRASOUND OBSTETRICAL CLINICAL INDICATION: 41-year-old female with pelvic pain. TECHNIQUE: Multiple sonographic images of the pelvis were obtained. The images were reviewed on a PACS workstation. COMPARISON: Ultrasound pelvis November 23, 2016. FINDINGS: There is a single intrauterine gestation. The mean sac diameter is 5.46 cm. There is a pole p resent with a crown-rump length of 6.67 cm. This yields an estimated gestational age of 12 weeks and 4 days. The estimated date of delivery is July 18, 2017. Cardiac activity is present at 152 beats per minute. There is no evidence for free fluid. The ovaries are not visualized bilaterally. No adn exal masses are noted. IMPRESSION: 1. Single viable intrauterine gestation of approximately 12 weeks 4 days. The estimated date of de livery is July 18, 2017. 2. The ovaries were not visualized bilaterally. .Mg Benson MD, Date Time Electronically viewed and signed by .Mg Benson MD, on 01/07/2017 02:28 .Ashley/
[2017-01-07] MEDS ORDERED: CEFTRIAXONE 1 GM/50 ML (PMX) 50 ML IVPB ONE (02:30)
[2017-01-07] MEDS ORDERED: CEPH-443 PO (02:35)
[2017-01-07] MEDS ORDERED: ACET500C5 PO (02:35)
[2017-01-07 03:29] VITALS: BP 112/68; PULSE 77; RESP 18; TEMP 98.3
== END 2017-01-07 03:29 | disposition home or self-care (01) ==
LOC: FTE 23:46
DX: O26.891 Other specified pregnancy related conditions, first trimester (principal); R10.2 Pelvic and perineal pain; O23.11 Infections of bladder in pregnancy, first trimester; Z3A.12 12 weeks gestation of pregnancy
CPT/HCPCS: 36415; 76801; 81001; 84702; 85025; 86900; 86901; 96374; J0696; J7030; Z7502

== ENCOUNTER 2017-01-19 11:50 | Emergency (ER) | payer MEDICAID ==
[~2017-01-19] VITALS: Wt 89.5 kg
[~2017-01-19 11:50] MED LIST changes: +ACET500C5 PO; +CEPH-443 PO
[2017-01-19] MEDS ORDERED: ACETAMINOPHEN 325 MG TAB PO STA (12:16)
[2017-01-19] MEDS ORDERED: SOD CHLORIDE 0.9% 1,000 ML IV STA (12:16)
--- NOTE | 2017-01-19 12:44 | RADRPT ---
PROCEDURE: Obstetrical ultrasound CLINICAL INDICATION: right flank pain, pelvic pain TECHNIQUE: Multiple sonographic images of the pelvis were obtained. The images were reviewed on a PACS workstation. COMPARISON: Obstetrical ultrasound from 01/07/1970 FINDINGS: The cervix is not well visualized There is a single viable intrauterine gestation. Cardiac activity is present with 157 beats per minute. There is a vertex presentation. The placenta is anterior. There is no evidence for an abruption or placenta previa. There is a normal amount of amniotic fluid with a maximum vertical pocket of 4.2 cm. Measurements were made in order to determine age. The results are as follows (cm): BPD =2.90 HC =10.94 AC =8.89 FL =1.45 Estimated gestational age by ultrasound of approximately 15 weeks, 0 days. The estimated date of delivery by ultrasound is 07/13/2017. Estimated gestational age by LMP of approximately 13 weeks, 5 days. The estimated date of delivery by LMP is 07/22/2017. EFW = 106 grams (95th percentile) Bilateral ovaries are not visualized. There are no abnormal adnexal masses. IMPRESSION: Single viable intrauterine gestation of approximately 15 weeks, 0 days . The estimated date of delivery is 07/13/2017 . Dating by ultrasound is within 9 days of dating by LMP. Estimated weight is 106 g which is in the 95th percentile. Anterior placenta without evidence of an abruption. Bilateral ovaries are not visualized. There are no abnormal adnexal masses. RPTAT: EE Physician Rafi Date Time Electronically viewed and signed by Physician Rafi on 01/19/2017 12:44 /
[2017-01-19 12:56] LABS: ADD UMIC YES; UR ASCORBIC ACID NEGATIVE (NEGATIVE); UR BACTERIA FEW /HPF (NONE SEEN); UR BILIRUBIN (Dip) NEGATIVE (NEGATIVE); UR BLOOD (Dip) 1+ mg/dL (NEGATIVE); UR CLARITY SLIGHTLY CLOUDY (CLEAR); UR COLOR YELLOW (YELLOW); UR GLUCOSE (Dip) NEGATIVE (NEGATIVE); UR KETONES (Dip) NEGATIVE (NEGATIVE); UR LEUKOCYTE ESTERASE (Dip) TRACE Leu/ul (NEGATIVE); UR MUCUS FEW /HPF (NONE SEEN); UR NITRITE (Dip) NEGATIVE (NEGATIVE); UR RBC 6 /HPF (0-5); UR SQUAMOUS EPITHELIAL CELL FEW /HPF (FEW); UR TOTAL PROTEIN (Dip) NEGATIVE (NEGATIVE); UR UROBILINOGEN (Dip) NEGATIVE (NEGATIVE)
[2017-01-19 13:36] LABS: BASOPHILS % 0.4 % (0.0-2.0); EOSINOPHILS % 0.5 % (0.0-7.0); HEMATOCRIT 36.4 % (37.0-47.0); HEMOGLOBIN 12.3 g/dl (12.0-16.0); LYMPHOCYTES # 1.8 10^3/ul (0.8-2.9); LYMPHOCYTES % 23.9 % (15.0-51.0); MEAN CORPUSCULAR HEMOGLOBIN 28.1 pg (29.0-33.0); MEAN CORPUSCULAR HGB CONC 33.8 g/dl (32.0-37.0); MEAN CORPUSCULAR VOLUME 83.1 fl (82.0-101.0); MONOCYTE # 0.4 10^3/ul (0.3-0.9); MONOCYTES % 5.6 % (0.0-11.0); NEUTROPHILS % 69.3 % (39.0-77.0); PLATELET COUNT 259 10^3/UL (140-415); RED BLOOD COUNT 4.38 10^6/ul (4.20-5.40); RED CELL DISTRIBUTION WIDTH 14.2 % (11.5-14.5); WHITE BLOOD COUNT 7.4 10^3/ul (4.8-10.8)
--- NOTE | 2017-01-19 13:44 | RADRPT ---
PROCEDURE: Renal US. CLINICAL INDICATION: right flank pain TECHNIQUE: Multiple sonographic images of the kidneys were obtained. The images were reviewed on a PACS workstation. COMPARISON: No prior studies are available for comparison. FINDINGS: The kidneys are well visualized. The right kidney measures 14.0 x 6.8 x 6.4 cm.. There is moderate right hydronephrosis. There is an echogenic focus in the inferior pole of the right kidney measuring 10 mm, probable shadowing stone. The left kidney measures and 13.5 x 6.7 x 5.9 cm. There are no focal areas of abnormal echogenicity. No discrete mass is identified in the bladder. However there are multiple echogenic foci within the bladder. IMPRESSION: 1. Moderate right hydronephrosis. 2. Echogenic focus in the inferior pole of the right kidney, probable nonobstructing stone. 3. Multiple echogenic foci present within the bladder, consistent with debris. Findings can be seen in cystitis. RPTAT: HSM .Rocco Pinto MD, MD Date Time Electronically viewed and signed by .Rocco Pinto MD, on 01/19/2017 13:44 .M/
[2017-01-19 13:54] LABS: ALBUMIN 3.7 g/dl (3.3-4.9); ALBUMIN/GLOBULIN RATIO 1.12; BILIRUBIN,INDIRECT 0.1 mg/dl (0-1.1); BILIRUBIN,TOTAL 0.1 mg/dl (0.2-1.3); CALCIUM 10.9 mg/dl (8.4-10.2); CREATININE 0.45 mg/dl (0.44-1.00); POTASSIUM 3.3 mmol/L (3.5-5.1)
[2017-01-19] MEDS ORDERED: CEPH-443 PO (15:36)
[2017-01-19] MEDS ORDERED: ACET500C5 PO (15:36)
[2017-01-19 15:52] VITALS: BP 129/79; PULSE 79; RESP 18
--- NOTE | 2017-01-19 15:54 | ERD ---
ER Documentation Chief Complaint Date/Time DATE: 01/19/17 TIME: 15:50 Chief Complaint pelvic pain 14 weeks HPI 41-year-old female patient who is currently since to the ED complaining of right flank pain that started 2 days ago. Reports that she has had dysuria since January 06, 2017 and was seen here was prescribed Macrobid which has not relieved her symptoms. Denies any vaginal bleeding, vaginal discharge, hematuria, urgency, frequency, abdominal pain, nausea, vomiting, chest pain, shortness of breath. States that her last menstruation was on October 13, 2016. ROS All systems reviewed and are negative except as per history of present illness. Medications Home Meds Active Scripts Cephalexin* (Keflex*) 500 Mg Capsule, 500 MG PO BID for 7 Days, CAP Prov:PANCHO AGUERO PA-C 01/19/17 Acetaminophen* (Tylophen*) 500 Mg Capsule, 1 CAP PO Q6H Y for PAIN AND OR ELEVATED TEMP, #20 CAP Prov:PANCHO AGUERO PA-C 01/19/17 Cephalexin* (Keflex*) 500 Mg Capsule, 500 MG PO QID for 10 Days, CAP Prov:CRISTIAN JOSEPH NP 01/07/17 Acetaminophen* (Tylophen*) 500 Mg Capsule, 1 CAP PO Q6H Y for PAIN AND OR ELEVATED TEMP, #20 CAP Prov:CRISTIAN JOSEPH NP 01/07/17 Nitrofurantoin Monohyd Macrocr* (Macrobid*) 100 Mg Capsr, 100 MG PO BID for 7 Days, CAP Prov:JAZZ MATT PA-C 11/18/16 Phenazopyridine Hcl* (Pyridium*) 200 Mg Tab, 200 MG PO TID Y for URINARY PAIN, # 6 TAB Prov:CRISTIAN JOSEPH NP 07/30/16 Ondansetron (Ondansetron Odt) 4 Mg Tab.rapdis, 4 MG PO Q8 Y for NAUSEA AND/OR VOMITING, #30 TAB Prov:CRISTIAN JOSEPH NP 07/30/16 Hydrocodone/Acetaminophen (Thorn[place] 5-325 Tablet) 1 Each Tablet, 1 TAB PO Q6H Y for SEVERE PAIN LEVEL 7-10, #20 TAB Prov:CRISTIAN JOSEPH NP 07/30/16 Ibuprofen* (Motrin*) 600 Mg Tab, 600 MG PO Q6H Y for PAIN AND OR ELEVATED TEMP, #30 TAB Prov:CRISTIAN JOSEPH ASSOCIATE SCHOOL PSYCHOLOGIST 07/30/16 Ciprofloxacin Hcl* (Ciprofloxacin Hcl*) 500 Mg Tablet, 500 MG PO BID for 7 Days , TAB Prov:CRISTIAN JOSEPH ASSOCIATE SCHO[employer] PSYCHOLOGIST 07/30/16 Diphenoxylate Hcl-Atropine* (Lomotil*) 1 Tab Tab, 1 TAB PO Q6H Y for DIARRHEA for 5 Days, TAB Prov:SUNDAYOSERNESTINESTOLOS A. DO 09/17/15 Hydrocodone Bit-Acetaminophen* (Thornton*) 10-325 Mg Tablet, 1 TAB PO Q4H Y for PAIN, #20 TAB Prov:LEKKOS,APOSTOLOS A. DO 09/17/15 Ibuprofen* (Motrin*) 600 Mg Tab, 600 MG PO Q6, #15 TAB Prov:KRISTA OJEDA ASSOCIATE SCHOOL PSYCHOLOGIST 03/16/15 Allergies Allergies: Coded Allergies: No Known Allergy (Unverified , 09/17/15) PMhx/Soc History of Surgery: No Anesthesia Reaction: No Hx Neurological Disorder: No Hx Respiratory Disorders: No Hx Cardiac Disorders: No Hx Psychiatric Problems: No Hx Miscellaneous Medical Probl: No Hx Alcohol Use: No Hx Substance Use: No Hx Tobacco Use: No Smoking Status: Never smoker Physical Exam Vitals Vital Signs Date Time Temp Pulse Resp B/P Pulse Ox O2 Delivery O2 Flow Rate FiO2 01/19/17 15:52 79 18 129/79 99 Room Air 01/19/17 11:53 98.1 86 18 123/80 99 Physical Exam Const: [id number], well-nourished. In no acute distress. Head: Atraumatic, normocephalic Eyes: Normal Conjunctiva without injection. No purulent discharge. ENT: Normal external ear, nose. Moist oropharynx without tonsillar exudates. Non -erythematous pharynx. Uvula midline. No drooling. No trismus. Neck: No cervical midline tenderness. Full range of motion. No meningismus. No cervical lymphadenopathy. No JVD. Resp: Clear to auscultation bilaterally. No wheezing, rhonchi, rales, or crackles. No accessory muscle use. No retractions. Cardio: Regular rate and rhythm. No murmurs, rubs or gallops. Abd: Soft, nontender, non distended. Normal bowel sounds. No palpable masses. No rebound tenderness. No guarding. Negative McBurney's point. Negative psoas sign. Negative obturator sign. Skin: No petechiae or rashes Back: No midline tenderness. No CVA tenderness. Ext: No cyanosis, or edema. Neur: Awake and alert. Normal gait. Normal coordination. Psych: Normal Mood and Affect Result Diagram: 01/19/17 1325 01/19/17 1325 Results 24 hrs Laboratory Tests Test 01/19/17 12:23 01/19/17 13:25 Urine Color YELLOW Urine Clarity SLIGHTLY CLOUDY Urine pH 6.0 Urine Specific [place] 1.010 Urine Ketones NEGATIVEmg/dL Urine Nitrite NEGATIVEmg/dL Urine Bilirubin NEGATIVEmg/dL Urine Urobilinogen NEGATIVEmg/dL Urine Leukocyte Esterase TRACELeu/ul Urine Microscopic RBC 6/HPF Urine Microscopic WBC 4/HPF Urine Squamous Epithelial Cells FEW/HPF Urine Bacteria FEW/HPF Urine Mucus FEW/HPF Urine Hemoglobin 1+mg/dL Urine Glucose NEGATIVEmg/dL Urine Total Protein NEGATIVEmg/dl White Blood Count 7.410^3/ul Red Blood Count 4.3810^6/ul Hemoglobin 12.3g/dl Hematocrit 36.4% Mean Corpuscular Volume 83.1fl Mean Corpuscular Hemoglobin 28.1pg Mean Corpuscular Hemoglobin Concent 33.8g/dl Red Cell Distribution Width 14.2% Platelet Count 22475^3/UL Mean Platelet Volume 11.0fl Neutrophils % 69.3% Lymphocytes % 23.9% Monocytes % 5.6% Eosinophils % 0.5% Basophils % 0.4% Nucleated Red Blood Cells % 0.0/100WBC Neutrophils # (Manual) 5.210^3/ul Lymphocytes # 1.810^3/ul Monocytes # 0.410^3/ul Eosinophils # 0.010^3/ul Basophils # 0.010^3/ul Nucleated Red Blood Cells # 0.010^3/ul Sodium Level 137mmol/L Potassium Level 3.3mmol/L Chloride Level 109mmol/L Carbon Dioxide Level 21mmol/L Anion Gap 10 Blood Urea Nitrogen 4mg/dl Creatinine 0.45mg/dl Glucose Level 83mg/dl Calcium Level 10.9mg/dl Total Bilirubin 0.1mg/dl Direct Bilirubin 0.00mg/dl Indirect Bilirubin 0.1mg/dl Aspartate Amino Transf (AST/SGOT) 16IU/L Alanine Aminotransferase (ALT/SGPT) 30IU/L Alkaline Phosphatase 90IU/L Total Protein 7.0g/dl Albumin 3.7g/dl Globulin 3.30g/dl Albumin/Globulin Ratio 1.12 Lipase 94U/L Beta HCG, Quantitative 81179.0mIU/ml Current Medications Medications (Trade) Dose Ordered Sig/Clarice Route PRN Reason Start Time Stop Time Status Last Admin Dose Admin Sodium Chloride (NS) 1,000 ml @ 1,000 mls/hr Q1H STAT IV 01/19/17 12:16 01/19/17 13:15 DC 01/19/17 13:36 Acetaminophen (Tylenol Tab) 650 mg ONCE STAT PO 01/19/17 12:16 01/19/17 12:18 DC 01/19/17 13:34 Procedures/MDM 41-year-old female patient with no significant past mental history presents the ED complaining of right flank pain and is currently . Patient is afebrile and nontoxic-appearing. Patient has normal vital signs. An ultrasound , beta-hCG, CBC, type and RH, UA was ordered to evaluate patient. CBC: No evidence of severe infection or anemia Urine: No elevation in nitrites, leukocyte esterase, hematuria. No evidence of UTI Rh: O positive No indication for Rhogam at this time. beta Hc PROCEDURE: Renal US. CLINICAL INDICATION: right flank pain TECHNIQUE: Multiple sonographic images of the kidneys were obtained. The images were reviewed on a PACS workstation. COMPARISON: No prior studies are available for comparison. FINDINGS: The kidneys are well visualized. The right kidney measures 14.0 x 6.8 x 6.4 cm.. There is moderate right hydronephrosis. There is an echogenic focus in the inferior pole of the right kidney measuring 10 mm, probable shadowing stone. The left kidney measures and 13.5 x 6.7 x 5.9 cm. There are no focal areas of abnormal echogenicity. No discrete mass is identified in the bladder. However there are multiple echogenic foci within the bladder. IMPRESSION: 1. Moderate right hydronephrosis. 2. Echogenic focus in the inferior pole of the right kidney, probable nonobstructing stone. 3. Multiple echogenic foci present within the bladder, consistent with debris. Findings can be seen in cystitis. PROCEDURE: Obstetrical ultrasound CLINICAL INDICATION: right flank pain, pelvic pain TECHNIQUE: Multiple sonographic images of the pelvis were obtained. The images were reviewed on a PACS workstation. COMPARISON: Obstetrical ultrasound from 01/07/1970 FINDINGS: The cervix is not well visualized There is a single viable intrauterine gestation. Cardiac activity is present with 157 beats per minute. There is a vertex presentation. The placenta is anterior. There is no evidence for an abruption or placenta previa. There is a normal amount of amniotic fluid with a maximum vertical pocket of 4.2 cm. Measurements were made in order to determine age. The results are as follows (cm): BPD = 2.90 HC = 10.94 AC = 8.89 FL = 1.45 Estimated gestational age by ultrasound of approximately 15 weeks, 0 days. The estimated date of delivery by ultrasound is 07/13/2017. Estimated gestational age by LMP of approximately 13 weeks, 5 days. The estimated date of delivery by LMP is 07/22/2017. EFW = 106 grams (95th percentile) Bilateral ovaries are not visualized. There are no abnormal adnexal masses. IMPRESSION: Single viable intrauterine gestation of approximately 15 weeks, 0 days . The estimated date of delivery is 07/13/2017 . Dating by ultrasound is within 9 days of dating by LMP. Estimated weight is 106 g which is in the 95th percentile. Anterior placenta without evidence of an abruption. Bilateral ovaries are not visualized. There are no abnormal adnexal masses. Patient has a 10 mm renal calculi noted of the right kidney. This case discussed with my supervising physician, Dr. Quezada who stated that patient can be managed on outpatient basis. A urine culture will also be sent. Patient currently has a single viable intrauterine of approximately 15 weeks. Low suspicion for placenta abruptio or previa. Low suspicion for symptomatic anemia, ectopic , sepsis, PID, appendicitis, ovarian torsion, tubo- ovarian abscess, surgical abdomen, septic renal stone, or other emergent conditions. Discharge medications: Tylenol, Keflex Patient to follow up with BRYOLOGIST in 2 days for further evaluation and treatment and a urologist if symptoms do not improve. Patient is to return sooner to the ED for any worsening symptoms. Patient's questions were answered. Patient understood and agreed with discharge plan. Departure Diagnosis: Primary Impression: Right flank pain Condition: Stable Patient Instructions: : Your Second Trimester Changes, Kidney Stone W / Colic Referrals: DESHAWN MADDOX MD (PCP) [facility] YOU HAVE RECEIVED A MEDICAL SCREENING EXAM AND THE RESULTS INDICATE THAT YOU DO NOT HAVE A CONDITION THAT REQUIRES URGENT TREATMENT IN THE EMERGENCY DEPARTMENT. FURTHER EVALUATION AND TREATMENT OF YOUR CONDITION CAN WAIT UNTIL YOU ARE SEEN IN YOUR DOCTORS OFFICE WITHIN THE NEXT 1-2 DAYS. IT IS YOUR RESPONSIBILITY TO MAKE AN APPOINTMENT FOR FOLOW-UP CARE. IF YOU HAVE A PRIMARY DOCTOR --you should call your primary doctor and schedule an appointment IF YOU DO NOT HAVE A PRIMARY DOCTOR YOU CAN CALL OUR PHYSICIAN REFERRAL HOTLINE AT IF YOU CAN NOT AFFORD TO SEE A PHYSICIAN YOU CAN CHOSE FROM THE FOLLOWING [facility] [address] [facility] [address] [facility] [facility] [address] [facility] [address] [facility] [address] [facility] [facility] [address] [facility] [facility] YOU HAVE RECEIVED A MEDICAL SCREENING EXAM AND THE RESULTS INDICATE THAT YOU DO NOT HAVE A CONDITION THAT REQUIRES URGENT TREATMENT IN THE EMERGENCY DEPARTMENT. FURTHER EVALUATION AND TREATMENT OF YOUR CONDITION CAN WAIT UNTIL YOU ARE SEEN IN YOUR DOCTORS OFFICE WITHIN THE NEXT 1-2 DAYS. IT IS YOUR RESPONSIBILITY TO MAKE AN APPOINTMENT FOR FOLOW-UP CARE. IF YOU HAVE A PRIMARY DOCTOR --you should call your primary doctor and schedule and appointment IF YOU DO NOT HAVE A PRIMARY DOCTOR YOU CAN CALL OUR PHYSICIAN REFERRAL HOTLINE AT . IF YOU CAN NOT AFFORD TO SEE A PHYSICIAN YOU CAN CHOSE FROM THE FOLLOWING [facility] INSTITUTIONS: [facility] [address] [place] [address] [facility] [address] [place] [address] [facility] [address] [place] [address] [facility] URGENT CARE/SPECIALTIES BRY[place] [address] [facility] [address] [place] [address] OFFICE FAX , [place] [address] [place] [address] DR. JEAN, [place] [address] [place] [address] DR ALBA, [facility] [address] [place] [address] [address] JENSEN, [facility] [address] [place] [address] [facility] [address] [place] [address] [address] [facility] [id number] - [address] YANES, ESME [address] [place] [address] DR KUMAR, KATHIA [address] [facility]. [address], [place] [address] DR WHEATLEY, [place] [address] [place], [place] [id number] [facility] Hours: 8:00 am - 5:00 pm Additional Instructions: Seguimiento de tu Gineclogo y obtener linda referencia a un urlogo de morris mdico de ludy para morris cuidado ms para morris bhavana en el rin. Avise o llame si morris condicin se empeora antes de la maribel. Regresa aqui si peor o no mejor. PANCHO AGUERO PA-C Jan 19, 2017 15:54
== END 2017-01-19 15:53 | disposition home or self-care (01) ==
LOC: FTE 11:50
DX: O26.892 Other specified pregnancy related conditions, second trimester (principal); R10.2 Pelvic and perineal pain; Z3A.15 15 weeks gestation of pregnancy
CPT/HCPCS: 36415; 76775; 76805; 80053; 81001; 83690; 84702; 85025; 86900; 86901; 87086; J7030; Z7502

== ENCOUNTER 2017-05-06 21:56 | Outpatient (CLI) | payer MEDICAID, OTHER ==
[~2017-05-06] VITALS: Ht 162.6 cm; Wt 100.0 kg
[2017-05-06] MEDS ORDERED: PREN1TAB17 PO (22:41)
[2017-05-06 22:42] VITALS: BP 115/79; PULSE 81; RESP 18; Ht 162.6 cm; Wt 100.0 kg
[2017-05-06] MEDS ORDERED: LACTATED RINGER'S 1,000 ML IV ONE (23:30)
[2017-05-07 00:05] LABS: ADD UMIC YES; UR ASCORBIC ACID NEGATIVE (NEGATIVE); UR BACTERIA FEW /HPF (NONE SEEN); UR BILIRUBIN (Dip) NEGATIVE (NEGATIVE); UR BLOOD (Dip) 2+ mg/dL (NEGATIVE); UR CLARITY CLOUDY (CLEAR); UR COLOR YELLOW (YELLOW); UR GLUCOSE (Dip) NEGATIVE (NEGATIVE); UR KETONES (Dip) NEGATIVE (NEGATIVE); UR LEUKOCYTE ESTERASE (Dip) 3+ Leu/ul (NEGATIVE); UR MUCUS FEW /HPF (NONE SEEN); UR NITRITE (Dip) NEGATIVE (NEGATIVE); UR RBC 67 /HPF (0-5); UR SPECIFIC GRAVITY (Dip) 1.009 (1.003-1.030); UR SQUAMOUS EPITHELIAL CELL FEW /HPF (FEW); UR TOTAL PROTEIN (Dip) 2+ mg/dl (NEGATIVE); UR UROBILINOGEN (Dip) NEGATIVE (NEGATIVE)
[2017-05-07] MEDS ORDERED: CEFTRIAXONE 1 GM/50 ML (PMX) 50 ML IVPB ONE (02:00)
[2017-05-07] MEDS ORDERED: SOD CHLORIDE 0.9% 1,000 ML IV SCH (02:00)
--- NOTE | 2017-05-07 03:40 | RADRPT ---
PROCEDURE: ULTRASOUND OBSTETRICAL CLINICAL INDICATION: 42-year-old female with contractions for cervical length evaluation. TECHNIQUE: Multiple sonographic images of the pelvis were obtained. The images were reviewed on a PACS workstation. COMPARISON: Ultrasound OB January 19, 2017. FINDINGS: The cervix is closed with a length of 4.1 cm measured transvaginally. IMPRESSION: The cervix has a length of 4.1 cm. .Mg Benson MD, MD Date Time Electronically viewed and signed by .Mg Benson MD, on 05/07/2017 03:40 .M/
--- NOTE | 2017-05-07 04:35 | PN ---
Triage Information Date/Time 05/07/17 Reason for visit: Uterine contractions Weeks of Gestation IUP 29w2d /Para Diabetes: none Hypertention: none Additional information conntractions all day for 3days today sx worsen Objective Vital Signs Date Time Temp Pulse Resp B/P Pulse Ox O2 Delivery O2 Flow Rate FiO2 05/06/17 22:42 97.8 81 18 115/79 Room Air Heart Rate: 140's Contractions: >10 Minutes Apart Exam CVA neg for tenderness Results/Medications Results 24 hrs Laboratory Tests Test 05/06/17 23:33 Urine Color YELLOW Urine Clarity CLOUDY A Urine pH 7.0 Urine Specific [place] 1.009 Urine Ketones NEGATIVE Urine Nitrite NEGATIVE Urine Bilirubin NEGATIVE Urine Urobilinogen NEGATIVE Urine Leukocyte Esterase 3+ H Urine Microscopic RBC 67 H Urine Microscopic WBC > 182 H Urine Squamous Epithelial Cells FEW Urine Bacteria FEW A Urine Mucus FEW A Urine Hemoglobin 2+ H Urine Glucose NEGATIVE Urine Total Protein 2+ H Medications Current Medications Sodium Chloride (NS) 1,000 ml @ 125 mls/hr Q8H IV Last administered on t 03:31; Admin Dose 125 MLS/HR; Start 05/07/17 at 02:00 Imaging Results CVL 4.1 Disposition: Discharge Assessment/Plan IUP 29w2d acute cystitis Plan discharge home with macrobid #20 increase fluid intake SMITH ESPINOZA MD May 07, 2017 04:35
--- NOTE | 2017-05-07 04:45 | TRIAGE ---
OB Triage Datetime Report Generated by CPN: 05/07/2017 04:45 Datetime: 05/07/2017 04:31 Contraction Comments: TOCO REMOVED Comments: US REMOVED Datetime: 05/07/2017 04:30 Stage of : OB Triage Labor Evaluation Frequency: X3 IN ONE HOUR Monitor Mode: External Duration (sec)2399: 60-70 Quality: Mild Resting Tone [place]: Relaxed Heart Rate FHR Baseline Rate: 135 Monitor Mode: External US Variability: Moderate 6-25 bpm Accelerations: 15X15 Datetime: 05/07/2017 04:20 Stage of : OB Triage Datetime: 05/07/2017 04:00 Stage of : OB Triage Labor Evaluation Frequency: X3 IN ONE HOUR Monitor Mode: External Duration (sec)2399: 50-70 Quality: Mild Resting Tone [place]: Relaxed Interventions: Side to Side Heart Rate FHR Baseline Rate: 135 Monitor Mode: External US Variability: Moderate 6-25 bpm Accelerations: 15X15 Decelerations: Variable Datetime: 05/07/2017 03:30 Pain Assessment Pain Scale: 2 Pain Presence: Intermittent Pain Type: Cramping Pain Location: Abdomen Datetime: 05/07/2017 03:00 Labor Evaluation Frequency: x5 Monitor Mode: External Duration (sec)2399: 50-80 Pattern: Normal: <= 5 Contractions in 10 Minutes Resting Tone [place]: Relaxed Heart Rate FHR Baseline Rate: 130 Monitor Mode: External US Variability: Moderate 6-25 bpm Accelerations: 15X15 Decelerations: None Category: Category I Datetime: 05/07/2017 02:12 Pain Assessment Pain Scale: 3 Pain Presence: Intermittent Pain Type: Cramping Pain Location: Abdomen Datetime: 05/07/2017 02:00 Labor Evaluation Frequency: x3 Monitor Mode: External Duration (sec)2399: 50-70 Pattern: Normal: <= 5 Contractions in 10 Minutes Resting Tone [place]: Relaxed Heart Rate FHR Baseline Rate: 130 Monitor Mode: External US Variability: Moderate 6-25 bpm Accelerations: 15X15 Decelerations: None Category: Category I Datetime: 05/07/2017 01:05 Monitor Mode: Palpation Resting Tone [place]: Relaxed Pain Assessment Pain Scale: 4 Pain Presence: Intermittent Pain Type: Cramping Pain Location: Abdomen Datetime: 05/07/2017 01:00 Labor Evaluation Frequency: x1 Monitor Mode: External Duration (sec)2399: 50 Pattern: Normal: <= 5 Contractions in 10 Minutes Resting Tone [place]: Relaxed Heart Rate FHR Baseline Rate: 135 Monitor Mode: External US Variability: Moderate 6-25 bpm Accelerations: 15X15 Decelerations: None Category: Category I Datetime: 05/07/2017 00:00 Labor Evaluation Frequency: x2 Monitor Mode: External Duration (sec)2399: 50-80 Pattern: Normal: <= 5 Contractions in 10 Minutes Resting Tone [place]: Relaxed Heart Rate FHR Baseline Rate: 135 Monitor Mode: External US Variability: Moderate 6-25 bpm Accelerations: 15X15 Decelerations: None Category: Category I Datetime: 05/06/2017 23:58 Vaginal Exam Membrane Status: Intact Datetime: 05/06/2017 23:30 Pain Assessment Pain Scale: 5 Pain Presence: Intermittent Pain Type: Cramping Pain Location: Abdomen Datetime: 05/06/2017 23:17 Monitor Mode: Palpation Quality: Mild Datetime: 05/06/2017 23:00 Labor Evaluation Frequency: NONE Monitor Mode: External Resting Tone [place]: Relaxed Heart Rate FHR Baseline Rate: 140 Monitor Mode: External US Variability: Moderate 6-25 bpm Accelerations: 15X15 Decelerations: None Category: Category I Datetime: 05/06/2017 22:34 EGA: 29.2 Datetime: 05/06/2017 22:21 Stage of : OB Triage Assessment Type: Triage Maternal Assessment Level of Consciousness: Fully Conscious DTR's/Clonus: DTRs 2+; No Clonus Headache: Denies Blurred Vision: No Respiratory Effort: Unlabored; Regular Rhythm; Equal Expansion Breath Sounds, Left: Clear and Equal Breath Sounds, Right: Clear and Equal Nausea/Vomiting: Denies RUQ Epigastric Pain: Denies Lower Extremities Edema: None Degree: None Upper Extremities Edema: None Degree: None Facial Edema: None Temperature Route: Oral Fall Risk Assessment History of Falling: (0) No Secondary Diagnosis: (0) No Ambulatory Aid: (0) Bedrest/Nurse Assist IV Therapy: (0) No Gait: (0) Normal/Bedrest/Immobile Mental Status: (0) Oriented to Own Ability Fall Score: 0 Fall Risk Score Definition: No Risk: No action required Pain Assessment Pain Scale: 5 Pain Presence: Intermittent Pain Type: Cramping; Contraction Pain Location: Abdomen Datetime: 05/06/2017 22:20 Time of Arrival: 05/06/2017 21:43 Arrived By: Wheelchair Arrived From: Home Chief Complaint: Contractions Movement: Present Contractions: Regular Time Contractions Began: 05/06/2017 09:00 Contractions: Every 3 minutes Rupture of Membranes: Denies Vaginal Bleeding: None Vaginal Discharge: Denies Recent Sexual Intercouse: Denies Abdominal Trauma: Not Applicable Patient Complaints: Contractions Time Provider Notified: 05/06/2017 23:17 Provider Notified: OLGA Initial Plan: [facility]
== END 2017-05-07 04:37 | disposition home or self-care (01) ==
LOC: OBT 21:56 → L-D 22:07 → OBT 05-07 04:37
PROVIDERS: ATTEND Specialist
DX: O62.9 Abnormality of forces of labor, unspecified (principal); O23.13 Infections of bladder in pregnancy, third trimester; O09.523 Supervision of elderly multigravida, third trimester; Z3A.29 29 weeks gestation of pregnancy
CPT/HCPCS: 36415; 76817; 81001; 87086; 96360; 96361; J0696; J7030; J7120; Z7500; G0463

== ENCOUNTER 2017-06-18 00:46 | Inpatient (IN) | END 2017-06-21 13:15 | disposition home or self-care (01) | DRG 766 ==

== ENCOUNTER 2017-10-06 12:44 | Emergency (ER) | END 2017-10-06 15:43 | disposition home or self-care (01) ==